=== PATIENT | male | born 1945 | race Caucasian/White ===

== ENCOUNTER 2017-06-09 13:49 | Inpatient (IN) | payer OTHER ==
[~2017-06-09] VITALS: Ht 182.9 cm; Wt 96.7 kg
[~2017-06-09 13:49] MED LIST: ACET-1600 PO; CARB1TAB44 PO; CARB1TAB48 PO; CARB25TA3 PO; ENTA200T22 PO; FESO8TAB PO; IBUP-1222 PO; NAPR-874 PO; RIVA1PAT23 TD; RIVA6CAP2 TP; TOLT2TAB4 PO
[2017-06-09 14:36] LABS: WHITE BLOOD COUNT 10.6 x10^3/uL (3.4-10)
[2017-06-09 14:46] LABS: BLOOD UREA NITROGEN 11 mg/dL (7-18)
[2017-06-09] MEDS ORDERED: IBUPROFEN 200 MG TABLET ONE (16:09)
[2017-06-09] MEDS ORDERED: IBUPROFEN 200 MG TABLET PO ONE (16:30)
[2017-06-09] MEDS ORDERED: KETOROLAC 30 MG/1 ML IM ONE (16:30)
[2017-06-09] MEDS ORDERED: TROS20TA2 PO (17:24)
[2017-06-09] MEDS ORDERED: ENTA200T22 PO (17:24)
[2017-06-09] MEDS ORDERED: RIVA1PAT23 TD (17:24)
[2017-06-09] MEDS ORDERED: CARB1TAB48 PO (17:24)
[2017-06-09] MEDS ORDERED: CARB1TAB44 PO (17:24)
[2017-06-09] MEDS ORDERED: NAPROXEN 500 MG TABLET PO PRN (18:30)
[2017-06-09] MEDS ORDERED: DOCUSATE 100 MG CAPSULE PO PRN (18:30)
[2017-06-09] MEDS ORDERED: ONDANSETRON 2MG/ML, 2ML IVPush PRN (18:30)
[2017-06-09] MEDS ORDERED: POLYETHYLENE GLYCOL 17 GM PACKET PO PRN (18:30)
[2017-06-09] MEDS ORDERED: RIVASTIGMINE TARTRATE TP SCH (18:30)
[2017-06-09] MEDS ORDERED: hydrALAzine 20 MG/ML, 1ML IVPush PRN (18:30)
[2017-06-09] MEDS ORDERED: GADOBUTROL 10 MMOL/10 ML PFS ONE (19:59)
[2017-06-09 20:57] VITALS: BP 138/85
[2017-06-09] MEDS ORDERED: TROSPIUM CHLORIDE HOMEMEDPO SCH (21:00)
[2017-06-09] MEDS ORDERED: CARBIDOPA/LEVODOPA CR 50 MG/200 MG TABLET PO SCH (21:00)
[2017-06-09] MEDS ORDERED: ENTACAPONE 200 MG TABLET PO SCH (21:00)
[2017-06-09] MEDS ORDERED: CARBIDOPA LEVO HOMEMEDPO SCH (21:00)
[2017-06-09] MEDS ORDERED: CARBIDOPA PO SCH ×2 (21:00)
[2017-06-09] MEDS: ENTACAPONE 200 MG TABLET PO SCH (21:00)
[2017-06-10 01:06] VITALS: BP 127/81
[2017-06-10] MEDS ORDERED: CALCIUM CARBONATE 500 MG TAB.CHEW PO PRN (03:30)
[2017-06-10 05:17] LABS: HEMOGLOBIN 14.1 g/dL (13.7-18.0); WHITE BLOOD COUNT 9.2 x10^3/uL (3.4-10)
[2017-06-10 05:29] LABS: BLOOD UREA NITROGEN 12 mg/dL (7-18)
[2017-06-10 05:33] LABS: ASPARTATE AMINO TRANSFERASE 18 U/L (15-37)
[2017-06-10] MEDS: ENTACAPONE 200 MG TABLET PO SCH ×4 (06:00→18:00)
[2017-06-10] MEDS: [UNRECOGNIZED DRUG - OTHER] HOMEMEDPO SCH ×4 (06:00→18:00)
[2017-06-10] MEDS: LEVODOPA HOMEMEDPO SCH ×4 (06:00→18:00)
[2017-06-10] MEDS: CARBIDOPA HOMEMEDPO SCH ×4 (06:00→18:00)
[2017-06-10 07:26] VITALS: BP 139/85
[2017-06-10] MEDS ORDERED: IBUPROFEN 600 MG TABLET PO SCH (09:00)
[2017-06-10] MEDS ORDERED: TEMPLATE NON-FORMULARY MED. (Trospium Chloride 20 MG) HOMEMEDPO SCH (09:00)
[2017-06-10] MEDS ORDERED: RIVASTIGMINE 9.5MG/24HR PATCH TD SCH (09:00)
[2017-06-10] MEDS: KETOROLAC 30 MG/1 ML IVPush PRN (09:15)
[2017-06-10] MEDS ORDERED: ENTACAPONE 200 MG TABLET PO SCH (10:00)
[2017-06-10 13:52] VITALS: BP 97/60
[2017-06-10] MEDS ORDERED: TOLTERODINE TARTRATE 4 MG PO SCH (18:00)
[2017-06-10] MEDS: TEMPLATE NON-FORMULARY MED. (Trospium Chloride 20 MG) HOMEMEDPO SCH (18:00)
[2017-06-10] MEDS: TOLTERODINE LA 4MG CAP.ER.24H PO SCH (18:06)
[2017-06-10 20:12] VITALS: BP 130/66
[2017-06-10] MEDS: CARBIDOPA/LEVODOPA CR 50 MG/200 MG TABLET PO SCH (20:23)
[2017-06-11 00:57] VITALS: BP 126/84
[2017-06-11] MEDS: LEVODOPA HOMEMEDPO SCH ×4 (05:34→18:00)
[2017-06-11] MEDS: [UNRECOGNIZED DRUG - OTHER] HOMEMEDPO SCH ×4 (05:34→18:00)
[2017-06-11] MEDS: CARBIDOPA HOMEMEDPO SCH ×4 (05:34→18:00)
[2017-06-11] MEDS: TEMPLATE NON-FORMULARY MED. (Trospium Chloride 20 MG) HOMEMEDPO SCH ×2 (05:35→18:00)
[2017-06-11] MEDS: ENTACAPONE 200 MG TABLET PO SCH ×4 (05:35→18:00)
[2017-06-11 07:47] VITALS: BP 130/85
[2017-06-11] MEDS ORDERED: RIVASTIGMINE 9.5MG/24HR PATCH TD SCH (09:00)
[2017-06-11] MEDS: EXELON 13.3 MG TD SCH (10:30)
[2017-06-11] MEDS: KETOROLAC 30 MG/1 ML IVPush PRN (10:35)
[2017-06-11 14:00] VITALS: BP 134/88
[2017-06-11] MEDS: TOLTERODINE LA 4MG CAP.ER.24H PO SCH (18:24)
[2017-06-11 19:02] VITALS: BP 120/79
[2017-06-11] MEDS ORDERED: LORazepam 2 MG/ML, 1ML IVPush ONE (20:30)
[2017-06-11 20:41] LABS: HEMATOCRIT 48.5 % (39.2-51.8); HEMOGLOBIN 15.9 g/dL (13.7-18.0); WHITE BLOOD COUNT 13.6 x10^3/uL (3.4-10)
[2017-06-11 20:49] LABS: ASPARTATE AMINO TRANSFERASE 18 U/L (15-37); BLOOD UREA NITROGEN 16 mg/dL (7-18)
[2017-06-11] MEDS: CARBIDOPA/LEVODOPA CR 50 MG/200 MG TABLET PO SCH (21:05)
[2017-06-12 03:00] VITALS: BP 160/84
[2017-06-12] MEDS: TEMPLATE NON-FORMULARY MED. (Trospium Chloride 20 MG) HOMEMEDPO SCH ×2 (06:00→18:00)
[2017-06-12] MEDS: CARBIDOPA HOMEMEDPO SCH ×4 (06:00→18:00)
[2017-06-12] MEDS: [UNRECOGNIZED DRUG - OTHER] HOMEMEDPO SCH ×4 (06:00→18:00)
[2017-06-12] MEDS: LEVODOPA HOMEMEDPO SCH ×4 (06:00→18:00)
[2017-06-12] MEDS: ENTACAPONE 200 MG TABLET PO SCH ×4 (06:00→18:20)
[2017-06-12 06:19] LABS: BLOOD UREA NITROGEN 15 mg/dL (7-18)
[2017-06-12 06:23] LABS: ASPARTATE AMINO TRANSFERASE 20 U/L (15-37)
[2017-06-12 06:46] LABS: HEMATOCRIT 44.8 % (39.2-51.8); HEMOGLOBIN 15.2 g/dL (13.7-18.0); WHITE BLOOD COUNT 12.5 x10^3/uL (3.4-10)
[2017-06-12 06:56] VITALS: BP 115/73
[2017-06-12] MEDS: EXELON 13.3 MG TD SCH (10:08)
[2017-06-12] MEDS: TOLTERODINE LA 4MG CAP.ER.24H PO SCH (18:20)
[2017-06-12 19:26] VITALS: BP 104/69
[2017-06-12] MEDS: CARBIDOPA/LEVODOPA CR 50 MG/200 MG TABLET PO SCH (21:27)
[2017-06-12] MEDS: ACETAMINOPHEN 325 MG TABLET PO PRN (21:28)
[2017-06-12] MEDS: KETOROLAC 30 MG/1 ML IVPush PRN ×2 (21:34→21:38)
[2017-06-13 04:46] VITALS: BP 155/91
[2017-06-13 04:56] LABS: HEMATOCRIT 45.9 % (39.2-51.8); HEMOGLOBIN 15.5 g/dL (13.7-18.0)
[2017-06-13 05:04] LABS: BLOOD UREA NITROGEN 16 mg/dL (7-18)
[2017-06-13] MEDS: [UNRECOGNIZED DRUG - OTHER] HOMEMEDPO SCH ×4 (05:59→18:00)
[2017-06-13] MEDS: LEVODOPA HOMEMEDPO SCH ×4 (05:59→18:00)
[2017-06-13] MEDS: CARBIDOPA HOMEMEDPO SCH ×4 (05:59→18:00)
[2017-06-13] MEDS: TEMPLATE NON-FORMULARY MED. (Trospium Chloride 20 MG) HOMEMEDPO SCH ×2 (06:00→18:00)
[2017-06-13] MEDS: ENTACAPONE 200 MG TABLET PO SCH ×4 (06:00→18:00)
[2017-06-13 07:01] VITALS: BP 133/79
[2017-06-13] MEDS: EXELON 13.3 MG TD SCH (09:00)
[2017-06-13 13:03] VITALS: BP 111/69
[2017-06-13] MEDS: KETOROLAC 30 MG/1 ML IVPush PRN (13:22)
[2017-06-13] MEDS: ACETAMINOPHEN 325 MG TABLET PO PRN (13:38)
[2017-06-13] MEDS: TOLTERODINE LA 4MG CAP.ER.24H PO SCH (18:29)
[2017-06-13 19:21] VITALS: BP 111/79
[2017-06-13] MEDS: CARBIDOPA/LEVODOPA CR 50 MG/200 MG TABLET PO SCH (21:12)
[2017-06-14 02:28] VITALS: BP 134/96
[2017-06-14] MEDS: LEVODOPA HOMEMEDPO SCH ×4 (06:00→18:00)
[2017-06-14] MEDS: CARBIDOPA HOMEMEDPO SCH ×4 (06:00→18:00)
[2017-06-14] MEDS: [UNRECOGNIZED DRUG - OTHER] HOMEMEDPO SCH ×3 (06:00→14:00)
[2017-06-14] MEDS: TEMPLATE NON-FORMULARY MED. (Trospium Chloride 20 MG) HOMEMEDPO SCH ×2 (06:00→18:00)
[2017-06-14] MEDS: ENTACAPONE 200 MG TABLET PO SCH ×4 (06:00→18:00)
[2017-06-14 07:23] VITALS: BP_SYST 115; BP_SYST 116; BP_DIAS 72; BP_DIAS 75
[2017-06-14] MEDS: EXELON 13.3 MG TD SCH (09:00)
[2017-06-14] MEDS: ACETAMINOPHEN 325 MG TABLET PO PRN (09:47)
[2017-06-14 13:42] VITALS: BP 101/66
[2017-06-14] MEDS: TOLTERODINE LA 4MG CAP.ER.24H PO SCH (18:00)
[2017-06-14 18:58] VITALS: BP 129/82
[2017-06-14] MEDS ORDERED: POLYETHYLENE GLYCOL 17 GM PACKET PO PRN (20:00)
[2017-06-14] MEDS ORDERED: ONDANSETRON 2MG/ML, 2ML IVPush PRN (20:00)
[2017-06-14] MEDS ORDERED: CALCIUM CARBONATE 500 MG TAB.CHEW PO PRN (20:00)
[2017-06-14] MEDS ORDERED: hydrALAzine 20 MG/ML, 1ML IVPush PRN (20:00)
[2017-06-14] MEDS ORDERED: DOCUSATE 100 MG CAPSULE PO PRN (20:00)
[2017-06-14] MEDS: CARBIDOPA/LEVODOPA CR 50 MG/200 MG TABLET PO SCH (21:06)
[2017-06-15 02:45] VITALS: BP 120/78
[2017-06-15] MEDS: LEVODOPA HOMEMEDPO SCH ×4 (06:35→18:00)
[2017-06-15] MEDS: CARBIDOPA HOMEMEDPO SCH ×4 (06:35→18:00)
[2017-06-15] MEDS: ENTACAPONE 200 MG TABLET PO SCH ×4 (06:36→18:00)
[2017-06-15] MEDS: TEMPLATE NON-FORMULARY MED. (Trospium Chloride 20 MG) HOMEMEDPO SCH ×2 (06:36→18:00)
[2017-06-15] MEDS: EXELON 13.3 MG TD SCH (09:00)
[2017-06-15 09:08] VITALS: BP 157/92
[2017-06-15] MEDS: ACETAMINOPHEN 325 MG TABLET PO PRN (11:20)
[2017-06-15 15:14] VITALS: BP 100/65
[2017-06-15] MEDS: TOLTERODINE LA 4MG CAP.ER.24H PO SCH (18:00)
[2017-06-15 19:38] VITALS: BP 119/80
[2017-06-15] MEDS: CARBIDOPA/LEVODOPA CR 50 MG/200 MG TABLET PO SCH (20:55)
[2017-06-16] MEDS: ACETAMINOPHEN 325 MG TABLET PO PRN (00:20)
[2017-06-16 02:24] VITALS: BP 120/78
[2017-06-16] MEDS: TEMPLATE NON-FORMULARY MED. (Trospium Chloride 20 MG) HOMEMEDPO SCH ×2 (05:55→18:00)
[2017-06-16] MEDS: CARBIDOPA HOMEMEDPO SCH ×4 (05:55→18:00)
[2017-06-16] MEDS: ENTACAPONE 200 MG TABLET PO SCH ×4 (05:55→18:00)
[2017-06-16] MEDS: LEVODOPA HOMEMEDPO SCH ×4 (05:55→18:00)
[2017-06-16 06:46] VITALS: BP 129/85
[2017-06-16] MEDS ORDERED: LIDO700A5 TD (08:29)
[2017-06-16] MEDS ORDERED: LIDODERM 5% PATCH TD SCH (08:30)
[2017-06-16] MEDS: EXELON 13.3 MG TD SCH (09:00)
[2017-06-16 13:45] VITALS: BP 114/70
[2017-06-16 13:55] VITALS: BP 109/71
[2017-06-16] MEDS: TOLTERODINE LA 4MG CAP.ER.24H PO SCH (18:00)
[2017-06-16 19:29] VITALS: BP 115/74
[2017-06-16] MEDS: CARBIDOPA/LEVODOPA CR 50 MG/200 MG TABLET PO SCH (21:00)
[2017-06-17 01:14] VITALS: BP 124/81
[2017-06-17] MEDS: ENTACAPONE 200 MG TABLET PO SCH ×3 (06:00→14:00)
[2017-06-17] MEDS: TEMPLATE NON-FORMULARY MED. (Trospium Chloride 20 MG) HOMEMEDPO SCH (06:00)
[2017-06-17] MEDS: CARBIDOPA HOMEMEDPO SCH ×3 (06:00→14:00)
[2017-06-17] MEDS: LEVODOPA HOMEMEDPO SCH ×3 (06:00→14:00)
[2017-06-17 06:52] VITALS: BP 117/75
[2017-06-17] MEDS: EXELON 13.3 MG TD SCH (09:00)
[2017-06-17] MEDS ORDERED: ACETAMINOPHEN 650 MG SUPP ONE (10:56)
[2017-06-17] MEDS: ACETAMINOPHEN 325 MG TABLET PO PRN (11:05)
[2017-06-17] MEDS ORDERED: MAGNESIUM CITRATE 300ML ORAL SOL PO ONE (13:00)
[2017-06-17 14:05] VITALS: BP 112/74
== END 2017-06-17 16:35 | DRG 552 ==
LOC: ED 17:03 → EDIP 17:35 → 3NE 20:45
PROVIDERS: ADMIT Internal Medicine; ATTEND Internal Medicine
DX: M47.814 Spondylosis without myelopathy or radiculopathy, thoracic region (principal); G20 Parkinson's disease; F02.80 Dementia in other diseases classified elsewhere, unspecified severity, without behavioral disturbance, psychotic disturbance, mood disturbance, and anxiety; M54.5 Low back pain; G62.9 Polyneuropathy, unspecified; M41.9 Scoliosis, unspecified; M48.06 Spinal stenosis, lumbar region; W01.198A Fall on same level from slipping, tripping and stumbling with subsequent striking against other object, initial encounter; Y93.89 Activity, other specified; Y92.000 Kitchen of unspecified non-institutional (private) residence as the place of occurrence of the external cause; Y99.8 Other external cause status; Z88.8 Allergy status to other drugs, medicaments and biological substances; D72.829 Elevated white blood cell count, unspecified; I10 Essential (primary) hypertension; K59.00 Constipation, unspecified; M51.34 Other intervertebral disc degeneration, thoracic region; M51.36 Other intervertebral disc degeneration, lumbar region; R29.6 Repeated falls; R32 Unspecified urinary incontinence; Z66 Do not resuscitate; G89.11 Acute pain due to trauma
CPT/HCPCS: 36415; 70450; 72128; 72131; 72157; 72158; 80048; 80053; 81003; 82040; 82140; 82247; 82248; 82607; 85025; 87324; 93005; 99285; A9585; J1885; 92523-GN; J2060

== ENCOUNTER 2017-10-30 11:21 | Emergency (ER) | payer OTHER ==
[~2017-10-30] VITALS: Ht 185.4 cm; Wt 105.0 kg
[~2017-10-30 11:21] MED LIST changes: +LIDO700A5 TD; -NAPR-874 PO; +NAPR250T6 PO; +TROS20TA2 PO
[2017-10-30 11:23] VITALS: BP 147/93
== END 2017-10-30 14:13 | disposition home or self-care (01) ==
LOC: ED 13:58
DX: M71.22 Synovial cyst of popliteal space [Baker], left knee (principal); M19.90 Unspecified osteoarthritis, unspecified site; I10 Essential (primary) hypertension; G20 Parkinson's disease
CPT/HCPCS: 99284